=== PATIENT | female | born 1965 | race Caucasian/White ===

== ENCOUNTER 2022-12-26 12:33 | Outpatient (CLI) | payer OTHER ==
[~2022-12-26 12:33] MED LIST: Magnevist 469MG/ML 20 ML VIAL ONE
== END 2022-12-26 12:34 | disposition home or self-care (01) ==
LOC: CSHMRI 12:33
PROVIDERS: ATTEND Internal Medicine
DX: C20 Malignant neoplasm of rectum (principal)
CPT/HCPCS: 72197

== ENCOUNTER 2023-05-03 12:29 | Outpatient (CLI) | payer OTHER | END 2023-05-03 12:30 | disposition home or self-care (01) | LOC: CSHMRI 12:29 | PROVIDERS: ATTEND Internal Medicine | DX: C20 Malignant neoplasm of rectum (principal) | CPT/HCPCS: 72197 ==

== ENCOUNTER 2023-10-02 08:44 | Outpatient (CLI) | payer OTHER | END 2023-10-02 08:45 | disposition home or self-care (01) | LOC: CSHWCC 08:44 | PROVIDERS: ATTEND Physician Assistant | DX: K94.03 Colostomy malfunction (principal); L24.B3 Irritant contact dermatitis related to fecal or urinary stoma or fistula; B37.2 Candidiasis of skin and nail | CPT/HCPCS: 99205; G0463 ==